=== PATIENT | male | born 1980 | race Caucasian/White ===

== ENCOUNTER 2018-01-01 14:25 | Emergency (ER) | payer OTHER, SELFPAY ==
[2018-01-01 14:28] VITALS: BP 142/89; PULSE 86; RESP 19; TEMP 36.7; O2SAT 95; BMI 32.1
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
[2018-01-01 15:26] VITALS: BP 137/83; PULSE 80; RESP 24; O2SAT 95
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
== END 2018-01-01 16:31 | disposition home or self-care (01) ==
PROVIDERS: Emergency Provider Emergency Medicine
DX: S30.1XXA Contusion of abdominal wall, initial encounter (principal); V43.52XA Car driver injured in collision with other type car in traffic accident, initial encounter; Y92.9 Unspecified place or not applicable; Z72.0 Tobacco use
CPT/HCPCS: 71046; 74177; 99285; Q9967; A4216

== ENCOUNTER → 2023-11-12 | Outpatient (CLI) | payer OTHER, SELFPAY ==
[2023-11-12 12:00] LABS: PSA,Total- Diagnostic 1.32 ng/mL (0.0-4.0)
== END | disposition home or self-care (01) ==
PROVIDERS: Referring Provider Urology; Visit Provider Urology
DX: Z00.00 Encounter for general adult medical examination without abnormal findings (principal); Z80.42 Family history of malignant neoplasm of prostate
CPT/HCPCS: 36415; 84153